=== PATIENT | male | born 1995 | race Caucasian/White ===

== ENCOUNTER 2017-06-21 02:53 | Emergency (ER) | payer OTHER ==
[2017-06-21 03:02] VITALS: BP 127/77; PULSE 108; RESP 16; TEMP 98.6; O2SAT 97
[2017-06-21] MEDS ORDERED: TDAP ADULT 0.5 ML INJ (BOOSTRIX) IM ONE (03:32)
--- NOTE | 2017-06-21 04:51 | EDPHY ---
H & P Stated Complaint: in [facility] at concert sustained contusion/laceration to head Time Seen by Provider: 06/21/17 03:40 HPI/ROS: HPI The patient presents with forehead lacerations which occurred several hours ago while at a rock concert in the [facility]. He hit his head on a hard object. He did not lose consciousness. He does not have vomiting, changes in his vision, behavioral changes. He is here with his mother. REVIEW OF SYSTEMS Constitutional: No fever, no chills. Eyes: No discharge. ENT: No sore throat. Cardiovascular: No chest pain, no palpitations. Respiratory: No cough, no shortness of breath. Gastrointestinal: No abdominal pain, no vomiting. Genitourinary: No hematuria. Musculoskeletal: No back pain. Skin: No rashes. Neurological: No headache. PMHx: Tetanus is not up-to-date Soc Hx: Healthy, studying engineering currently, musician PHYSICAL General Appearance: Alert, no distress Eyes: Pupils equal and round no pallor or injection Head: 4 cm laceration and 2 cm laceration in his mid forehead which are longitudinal, non gaping, frontalis muscle is intact. ENT, Mouth: Mucous membranes moist Respiratory: Breathing comfortably Neurological: A&O, moves all extremities Skin: Warm and dry, no rashes Musculoskeletal: Neck is supple non tender Extremities: symmetrical, full range of motion Psychiatric: Patient is oriented X 3, there is no agitation Source: Patient Exam Limitations: No limitations - Personal History Current Tetanus/Diphtheria Vaccine: No - Medical/Surgical History Hx Asthma: No Hx Chronic Respiratory Disease: No Hx Diabetes: No Hx Cardiac Disease: No Hx Renal Disease: No Hx Cirrhosis: No Hx Alcoholism: No Hx HIV/AIDS: No Hx Splenectomy or Spleen Trauma: No Other PMH: PMHx: denies. PSHx: R meniscus bucket tear repair - Social History Smoking Status: Current every day smoker Constitutional: Initial Vital Signs Temperature (C) 37 C 06/21/17 02:56 Heart Rate 108 H 06/21/17 02:56 Respiratory Rate 16 06/21/17 02:56 Blood Pressure 127/77 H 06/21/17 02:56 O2 Sat (%) 97 06/21/17 02:56 O2 Delivery Mode Room Air Allergies/Adverse Reactions: amoxicillin [From Augmentin] Allergy (Verified 06/21/17 02:56) clavulanic acid [From Augmentin] Allergy (Verified 06/21/17 02:56) Penicillins Allergy (Verified 06/21/17 02:56) Home Medications: Medication Instructions Recorded NK [No Known Home Meds] 06/21/17 Medical Decision Making Procedures: LACERATION REPAIR Procedure: Laceration repair. Verbal consent was obtained from the patient. The linear 2 cm laceration on the mid forehead was anesthetized using lidocaine with epinephrine. The wound was scrubbed, draped and explored to its base with a gloved finger. There were no deep structures involved. No tendon injury was identified. . The wound was repaired with 3 simple interrupted sutures of 5.0 nylon. The wound repair was simple. The procedure was performed by myself. LACERATION REPAIR Procedure: Laceration repair. Verbal consent was obtained from the patient. The linear 5 cm laceration on the mid forehead was anesthetized using lidocaine with epinephrine. The wound was scrubbed, draped and explored to its base with a gloved finger. There were no deep structures involved. No tendon injury was identified. . The wound was repaired with for horizontal mattress sutures using 5.0 nylon. The wound repair was simple. The procedure was performed by myself. Differential Diagnosis: This is a 21-year-old healthy male who presents with forehead lacerations sustained while at a concert, hitting his head on a hard object. He does not have any loss of consciousness, vomiting, changes in his vision, neurologic deficit, behavioral changes. Because of this, I do not believe CT scan of his head is indicated. He may have a mild concussion. His lacerations were repaired in the emergency room. He will be discharged with follow up with Plastic surgery as needed and will return to the ER or primary care doctor for suture removal in 5 days. We have discussed wound care. - Data Points Medications Given: Discontinued Medications Diphtheria/Tetanus/Acell Pertussis (Boostrix) 0.5 ml IM .ONCE ONE Stop: 06/21/17 03:33 Last Admin: 06/21/17 03:51 Dose: 0.5 ml Departure - Departure Disposition: Home, Routine, Self-Care Clinical Impression: Laceration of forehead Qualifiers: Encounter type: initial encounter Qualified Code(s): S01.81XA - Laceration without foreign body of other part of head, initial encounter Condition: Good Instructions: Care For Your Stitches (ED) Additional Instructions: Your sutures should be removed in 5-6 days. You can return to the emergency room and we can remove them in the triage area. You can also follow up with your primary care doctor or possibly the plastic surgeon. Please keep the wound covered and use antibiotic ointment and a dressing. For the next 6 months, you will need to avoid the sun to prevent scarring. Referrals: Wilfrid Harrell MD [Primary Care Provider] - As per Instructions Familia Murphy MD [Medical Doctor] - As per Instructions
== END 2017-06-21 05:03 | disposition home or self-care (01) ==
DX: S01.81XA Laceration without foreign body of other part of head, initial encounter (principal); F17.200 Nicotine dependence, unspecified, uncomplicated; Z23 Encounter for immunization; W22.8XXA Striking against or struck by other objects, initial encounter